=== PATIENT | male | born 2005 | race Hispanic/Latino ===

== ENCOUNTER 2024-04-14 17:19 | Emergency (ER) | payer OTHER ==
[~2024-04-14] VITALS: Ht 180.3 cm; Wt 85.5 kg
[2024-04-14 17:22] VITALS: BP 133/78; TEMP 99.4; O2SAT 98
[2024-04-14] MEDS ORDERED: AMOX500T2 PO (19:49)
[2024-04-14] MEDS ORDERED: AUGMENTIN 500MG TAB PO ONE (19:50)
== END 2024-04-14 20:08 | disposition home or self-care (01) ==
LOC: M ED 17:19
DX: K04.7 Periapical abscess without sinus (principal); F17.290 Nicotine dependence, other tobacco product, uncomplicated